=== PATIENT | male | born 1990 | race Caucasian/White ===

== ENCOUNTER 2023-12-09 06:10 | Emergency (ER) | payer BC ==
[2023-12-09] MEDS ORDERED: Sodium Chloride 0.9% 10 ML Syringe FLUSH PRN (06:43)
[2023-12-09] MEDS: Acetaminophen 500 MG Tab PO ONE (07:07)
[2023-12-09] MEDS: Ondansetron 4 MG/2 ML SDV IVPUSH ONE (07:07)
[2023-12-09 07:22] LABS: BASOPHILS PERCENT AUTO 0.1 % (0.2-1.2); EOSINOPHILS ABSOLUTE AUTO 0.4 x10^3/uL (0.0-0.5); EOSINOPHILS PERCENT AUTO 3.1 % (0.0-4.0); HEMATOCRIT 49.2 % (40.0-52.0); IMMATURE GRAN ABSOLUTE AUTO 0.02 x10^3/uL (0.00-0.07); LYMPHOCYTES ABSOLUTE AUTO 1.8 x10^3/uL (1.0-4.8); LYMPHOCYTES PERCENT AUTO 14.5 % (25.0-50.0); MEAN CORPUSCULAR HEMOGLOBIN 29.1 pg (26.0-32.0); MEAN CORPUSCULAR HGB CONC 36.6 g/dL (32.0-36.0); MEAN CORPUSCULAR VOLUME 79.6 fL (78.0-93.0); MONOCYTES PERCENT AUTO 7.8 % (2.0-11.0); NEUTROPHILS ABSOLUTE AUTO 9.2 x10^3/uL (1.8-7.7); NEUTROPHILS PERCENT AUTO 74.3 % (50.0-80.0); PLATELET COUNT,PLT 206 x10^3/uL (130-400); RED BLOOD CELL COUNT 6.18 x10^6/uL (4.5-6.0); WHITE BLOOD CELL COUNT,WBC 12.4 x10^3/uL (4.0-10.0)
[2023-12-09 07:33] LABS: A/G RATIO 1.24; ALANINE AMINOTRANSFERASE,ALT 57 U/L (16-63); ALBUMIN 4.6 g/dL (3.4-5.0); ALKALINE PHOSPHATASE 111 U/L (46-116); ANION GAP 12.2 mmol/L (5-15); ASPARTATE AMNIOTRANSFERASE,AST 17 U/L (15-37); BLOOD UREA NITROGEN,BUN 15 mg/dL (7-18); CALCIUM 9.8 mg/dL (8.5-10.1); CARBON DIOXIDE,CO2 30 mmol/L (21-32); CHLORIDE,CL 102 mmol/L (98-107); CREATININE 0.8 mg/dL (0.70-1.30); ESTIMATED GFR 120 mL/min (>=60); GLUCOSE RANDOM 115 mg/dL (70-99); LIPASE 21 U/L (19-71); POTASSIUM,K 4.2 mmol/L (3.5-5.1); PROTEIN TOTAL,TP 8.3 g/dL (6.4-8.2); SODIUM,NA 140 mmol/L (136-145)
[2023-12-09] MEDS: Iopamidol 612 MG/ML 100 ML Bottle IVPUSH ONE (08:22)
[2023-12-09] MEDS: Sodium Chloride 0.9% 1,000 ML IV ONE (10:20)
[2023-12-09] MEDS: Morphine 2 MG/ML SYRINGE IVPUSH ONE ×2 (10:25→13:15)
== END 2023-12-09 13:45 | disposition short-term general hospital (02) ==
LOC: VM.ED 06:10
DX: K56.609 Unspecified intestinal obstruction, unspecified as to partial versus complete obstruction (principal); Z79.899 Other long term (current) drug therapy; Z91.048 Other nonmedicinal substance allergy status; Z91.040 Latex allergy status; Z91.018 Allergy to other foods; Z88.1 Allergy status to other antibiotic agents
CPT/HCPCS: 36415; 71045; 74177; 80053; 83690; 85025; 96361; 96374; 96375; 96376; 99284; 99285-25; A9270-GY; J2270; J2405; J7030; Q9967